=== PATIENT | female | born 1980 | race Caucasian/White ===

== ENCOUNTER 2017-03-18 22:21 | Emergency (ER) | payer MEDICAID ==
[2017-03-19 00:10] VITALS: BP 116/69
== END 2017-03-19 00:10 | disposition home or self-care (01) ==
LOC: ED 22:21
DX: J06.9 Acute upper respiratory infection, unspecified (principal); E11.9 Type 2 diabetes mellitus without complications
CPT/HCPCS: Q0092

== ENCOUNTER 2019-03-17 21:07 | Emergency (ER) | payer SELFPAY ==
[~2019-03-17] VITALS: Ht 149.9 cm; Wt 85.3 kg
[2019-03-17 21:13] VITALS: Ht 149.9 cm; Wt 85.3 kg
[2019-03-17 23:06] LABS: CALCIUM 8.9 mg/dL (8.5-10.1); CARBON DIOXIDE 22.4 mmol/L (21-32); CHLORIDE SERUM 103 mmol/L (98-107); CREATININE SERUM 0.7 mg/dL (0.6-1.0); GFR1 > 60 mL/min; GLUCOSE SERUM 89 mg/dL (74-106); POTASSIUM SERUM 3.7 mmol/L (3.5-5.1); SODIUM SERUM 137 mmol/L (136-145)
[2019-03-17 23:10] LABS: BASOPHIL % 0.2 % (0-2); PLATELET COUNT 326 x10^3mcL (130-400); RED CELL DISTRIBUTION WIDTH 14.6 % (11.5-14.5)
[2019-03-17 23:11] LABS: ALBUMIN 3.7 g/dL (3.4-5.0); ALKALINE PHOSPHATASE 73 U/L (46-116); ALT/SGPT 49 U/L (14-59); AST/SGOT 24 U/L (15-37); BILIRUBIN TOTAL 0.19 mg/dL (0.20-1.00)
[2019-03-17 23:12] LABS: TOTAL PROTEIN, SERUM 8.4 g/dL (6.4-8.2)
[2019-03-17 23:58] VITALS: BP 104/63
== END 2019-03-17 23:58 | disposition home or self-care (01) ==
LOC: ED 21:07
PROVIDERS: Emergency Medicine
DX: R42 Dizziness and giddiness (principal); F41.9 Anxiety disorder, unspecified; E11.9 Type 2 diabetes mellitus without complications
CPT/HCPCS: J2765; J8597